=== PATIENT | male | born 1965 | race Caucasian/White ===

== ENCOUNTER 2017-11-23 12:19 | Emergency (ER) | payer MEDICARE, MEDICAID ==
[~2017-11-23] VITALS: Ht 91.4 cm; Wt 95.3 kg
[~2017-11-23 12:19] MED LIST: ATORVASTATIN CA10 MG ORAL; CLOZARIL25 MG ORAL; COREG3.125 MG ORAL; CYMBALTA60 MG ORAL; FLUVOXAMINE MAL50 M1 PO; LAMICTAL25 MG ORAL; LEXAPRO20 MG ORAL; VYVANSE50 MG ORAL; XANAX0.25 MG ORAL
[2017-11-23] MEDS ORDERED: Tetanus/Diptheria/Pertussis Vaccine 0.5ml Syr IM ONE (12:45)
[2017-11-23] MEDS ORDERED: Lidocaine 1% Plain 30 ml INJ ONE (13:00)
[2017-11-23 13:19] VITALS: BP 142/72
--- NOTE | 2017-11-23 14:48 | Emergency Room Report ---
History of Present Illness General Chief Complaint: Laceration Present Illness HPI *52-year-old male presents emergency department By responsible green party for laceration to the right index finger times one hour. Patient was cleaning something in the shower when he sustained laceration he denies falling or hitting his head. Patient has history of developmental/psychiatric diagnoses. Patient is not up-to-date with tetanus vaccination he states his pain is 3 out of 10 in severity at this time. He describes moderate bleeding initially however he states that bleeding has resolved. Denies paresthesias in the affected extremity or inability to move the affected extremity. Denies numbness tingling or loss of sensation or gross motor movements of the extremities, incontinence of bowel or bladder. Denies CP, Palpitations, LOC, AMS , dizziness, Changes in Vision, weakness or a sudden severe headache. Allergies: Coded Allergies: No Known Allergies (Unverified , 06/03/17) Patient History Past Medical History: see triage record Past Surgical History: none Pertinent Family History: none Reviewed Nursing Documentation: PMH: Agreed; PSxH: Agreed Nursing Documentation-PMH Hx Cardiac Problems: Yes Hx Hypertension: Yes Hx Dialysis: Yes - t-th-s left arm av shunt History Of Psychiatric Problem: Yes Review of Systems All Other Systems: negative except mentioned in HPI Physical Exam Vital Signs Date Time Temp Pulse Resp B/P (MAP) Pulse Ox O2 Delivery O2 Flow Rate FiO2 11/23/17 12:30 98.1 88 16 138/6 98 Room Air 98.1 Medical Decision Making PA Attestation Dr. Smith is my supervising Physician whom patient management has been discussed with. Diagnostic Impression: Primary Impression: Extensor tendon laceration of finger with open wound Qualified Codes: S66.529A - Laceration of intrinsic muscle, fascia and tendon of unspecified finger at wrist and hand level, initial encounter; S61.209A - Unspecified open wound of unspecified finger without damage to nail, initial encounter ER Course Pt. presents to the ED c/o laceration to [ ] Ddx considered but are not limited to laceration, tendon injury, cellulitis, amputation Vital signs: are WNL, pt. is afebrile H&PE are most consistent with: Right Index finger laceration approx cm in length ORDERS: none required at this time, the diagnosis is clinical ED INTERVENTIONS: -Tetanus vaccine was administered as pt. vaccination status was unknown. - The wound was copiously irrigated with normal saline - pt. is anesthetized with 1%lidocaine plain. --explored for foreign body for which no FB was found, however questionable partial tendon involvement. --*-- Consult with Dr. Felder (Plastic surgery-hand) after evaluation he determined partial tendon laceration which he repaired with sutures. -Bacitracin and sterile dressing is applied. -Finger Splint applied by case technician. Pt. remains neurovascularly intact. Discussed with patient: That we make every effort to approximate the laceration as best as we can so that scarring will be as cosmetically pleasing as possible with our limited cosmetic skill set in the Emergency dept. Regardless of our best efforts there will be scarring after laceration repair. The extent of scarring is unknown at this time. DISCHARGE: At this time pt. is stable for d/c to home. Will provide printed patient care instructions, and any necessary prescriptions. Care plan and follow up instructions have been discussed with the patient prior to discharge. Last Vital Signs Date Time Temp Pulse Resp B/P (MAP) Pulse Ox O2 Delivery O2 Flow Rate FiO2 11/23/17 13:19 98.1 78 16 142/72 99 Room Air 98.1 Disposition: HOME, SELF-CARE Condition: Stable Physician Consult: Dr. Felder ( Plastic Surgery-hand) Scripts Bacitracin/Polymyxin B Sulfate (BACITRACIN-POLYMYXIN OINTMENT) 28.35 Gm Oint...g. 1 APPLIC TP BID, #28.3 GM Prov: Michelle Connors 11/23/17 Cephalexin* (KEFLEX*) 500 Mg Capsule 500 MG ORAL EVERY 12 HOURS for 7 Days, #14 CAP 0 Refills Prov: Michelle Connors 11/23/17 Referrals: NOT CHOSEN [facility]/,REFERRING (PCP) Patient Instructions: Laceration Care, Adult Additional Instructions: Take medications as directed. Follow up with Dr. Felder in 3-5 days, even if your symptoms have resolved. * * Return sooner to ED if new symptoms occur, or current symptoms become worse. - Please note that this Emergency Department Report was dictated using [employer] assistant teacher technology software, occasionally this can lead to erroneous entry secondary to interpretation by the dictation equipment. Michelle Connors Nov 23, 2017 14:48
[2017-11-23] MEDS ORDERED: BACITRACIN-P28.35 GM TP (15:00)
[2017-11-23] MEDS ORDERED: Bacitracin Oint UD TOPIC ONE (15:00)
[2017-11-23] MEDS ORDERED: CEPHALEXIN500 MG ORAL (15:00)
[2017-11-23 15:15] VITALS: BP 146/94
== END 2017-11-23 15:21 | disposition home or self-care (01) ==
LOC: EMR 12:53
DX: S61.210A Laceration without foreign body of right index finger without damage to nail, initial encounter (principal); S66.320A Laceration of extensor muscle, fascia and tendon of right index finger at wrist and hand level, initial encounter; W45.8XXA Other foreign body or object entering through skin, initial encounter; Y93.E9 Activity, other interior property and clothing maintenance; Y92.002 Bathroom of unspecified non-institutional (private) residence as the place of occurrence of the external cause; I10 Essential (primary) hypertension
CPT/HCPCS: 99284; J2001